=== PATIENT | female | born 1990 | race Two or more races ===

== ENCOUNTER 2016-06-13 13:42 | Emergency (ER) | payer MEDICAID ==
[2016-06-13 13:48] VITALS: BP 177/91; PULSE 87; RESP 16; TEMP 98.1; O2SAT 97
[2016-06-13] MEDS ORDERED: NS 1,000 ML IV ONE (13:56)
--- NOTE | 2016-06-13 13:57 | UCPHY ---
H & P Patient Type: New Chief Complaint Nursing Narrative: Lightheaded Time Seen by Provider: 06/13/16 13:52 HPI/ROS: CHIEF COMPLAINT: Lightheaded HISTORY OF PRESENT ILLNESS: Patient is a 25-year-old female who comes to the emergency department concerned that she may be having an allergic reaction. She states that soon after eating she began having a stuffy nose and feeling slightly lightheaded. No chest pain. No nausea vomiting. No rashes. No swelling. No shortness of breath or wheezing. This all began about 2 hours ago. She has not had a fever or been recently ill. About 1 month ago she had a slightly similar episode where after eating she became nauseous and then lightheaded. She presented to the emergency department and tests were normal and she was told that she maybe had a slight allergy to the food she has been eating. She does not have any known food allergies. She describes her symptoms as mild and even has a hard time pinpointing her chief complaints. REVIEW OF SYSTEMS: Constitutional: See HPI EENTM: denies: blurred vision, double vision, nose congestion Respiratory: denies: cough, shortness of breath Cardiac: denies: chest pain, irregular heart rate, palpitations Gastrointestinal/Abdominal: denies: abdominal pain, diarrhea, nausea, vomiting, blood streaked stools Genitourinary: denies: dysuria, frequency, hematuria, pain Musculoskeletal: denies: joint pain, muscle pain Skin: denies: lesions, rash, jaundice, bruising Neurological: denies: headache, numbness, paresthesia, tingling, dizziness, weakness Hematologic/Lymphatic: denies: blood clots, easy bleeding, easy bruising Immunologic/allergic: denies: HIV/AIDS, transplant EXAM: GENERAL: Well-appearing, obese and in no acute distress. HEAD: Atraumatic, normocephalic. EYES: Pupils equal round and reactive to light, extraocular movements intact, sclera anicteric, conjunctiva are normal. ENT: TMs normal, nares patent, oropharynx clear without exudates. Moist mucous membranes. NECK: Normal range of motion, supple without lymphadenopathy or JVD. LUNGS: Breath sounds clear to auscultation bilaterally and equal. No wheezes rales or rhonchi. HEART: Regular rate and rhythm without murmurs, rubs or gallops. ABDOMEN: Soft, nontender, normoactive bowel sounds. No guarding, no rebound. No masses appreciated. BACK: No CVA tenderness, no spinal tenderness, step-offs or deformities EXTREMITIES: Normal range of motion, no pitting or edema. No clubbing or cyanosis. NEUROLOGICAL: Cranial nerves II through XII grossly intact. Normal speech, normal gait. 5/5 strength, normal movement in all extremities, normal sensation PSYCH: Normal mood, normal affect. SKIN: Warm, dry, normal turgor, no visible rashes or lesions. Source: Patient Exam Limitations: No limitations - Personal History LMP (Females 10-55): 1-7 Days Ago Current Tetanus Diphtheria and Acellular Pertussis (TDAP): Yes Tetanus Vaccine Date: within 10 years - Medical/Surgical History Hx Asthma: No Hx Chronic Respiratory Disease: No Hx Diabetes: No Hx Cardiac Disease: No Hx Renal Disease: No Hx Cirrhosis: No Hx Alcoholism: No Hx HIV/AIDS: No Hx Splenectomy or Spleen Trauma: No Other PMH: None - Family History Significant Family History: No pertinent family hx - Social History Smoking Status: Never smoked Alcohol Use: None Drug Use: None Constitutional: Initial Vital Signs Temperature (C) 36.7 C 06/13/16 13:45 Heart Rate 87 06/13/16 13:45 Respiratory Rate 16 06/13/16 13:45 Blood Pressure 177/91 H 06/13/16 13:45 O2 Sat (%) 97 06/13/16 13:45 O2 Delivery Mode Room Air Allergies/Adverse Reactions: No Known Allergies Allergy (Verified 06/13/16 13:48) Home Medications: Medication Instructions Recorded Trinessa Tablet 06/13/16 Medical Decision Making - Diagnostics EKG Interpretation: An EKG obtained and was read and documented in trace view. Please see trace view for full reading and report. Sinus rhythm, no arrhythmia or ischemic changes. ED Course/Re-evaluation: Patient is well appearing. No significant abnormalities on exam. Normal vital signs. I will observe obtain EKG and lab work. 2:50 p.m. the patient feels completely better. We discussed her lab work and EKG which is reassuring. I told her that I do not know exactly why she was feeling lightheaded. Possibly she is starting to come down with a cold. No visible signs of allergy. Will allow her to go home and follow up with her primary doctor. We discussed indications for returning. Differential Diagnosis: Partial list of the Differential diagnosis considered include but were not limited to; allergic reaction, anxiety, viral syndrome and although unlikely based on the history and physical exam, I also considered arrhythmia, acute coronary disease, vertigo. I discussed these differential diagnoses and the plan with the patient as well as the usual and expected course. The patient understands that the diagnosis is provisional and that in medicine we are not always correct and that further workup is often warranted. Usual and customary warnings were given. All of the patient's questions were answered. The patient was instructed to return to the emergency department should the symptoms at all worsen or return, otherwise to followup with the physician as we discussed. - Data Points Laboratory Results: Laboratory Results 06/13/16 14:18 06/13/16 14:18 Medications Given: Discontinued Medications Sodium Chloride (Ns) 1,000 mls @ 0 mls/hr IV ONCE ONE PRN Reason: Wide Open Stop: 06/13/16 13:57 Last Admin: 06/13/16 15:05 Dose: Not Given Departure - Departure Disposition: Home, Routine, Self-Care Clinical Impression: Lightheaded Condition: Fair Instructions: Lightheadedness (ED) Referrals: Delmy Lloyd MD [Primary Care Provider] - As per Instructions - PQRS PQRS Measurement: Not applicable
--- NOTE | 2016-06-13 14:14 | CPEKG ---
Heart Rate: 78 RR Interval: 769 P-R Interval: 148 QRSD Interval: 80 QT Interval: 368 QTC Interval: 420 P [place]: 44 QRS [place]: 73 T Wave [place]: 41 EKG Severity - NORMAL ECG - EKG Impression: SINUS RHYTHM Electronically Signed By: Amadeo Novak 13-Jun-2016 14:31:40
[2016-06-13 14:21] LABS: % IMMATURE GRANULYOCYTES 0.1 % (0.0-1.1); ABSOLUTE IMMATURE GRANULOCYTES 0.01 10^3/uL (0.00-0.10); ADD DIFF? NO; ADD MORPH? NO; ADD SCAN? NO; ATYPICAL LYMPHOCYTE FLAG 0 (0-99); FRAGMENT RBC FLAG 0 (0-99); HEMATOCRIT 41.5 % (38.0-47.0); HEMOGLOBIN 13.4 g/dL (12.6-16.3); LEFT SHIFT FLG 0 (0-99); LIPEMIA HEMOLYSIS FLAG 80 (0-99); MEAN CELL HEMOGLOBIN 26.2 pg (27.9-34.1); MEAN CELL HEMOGLOBIN CONCENTR. 32.3 g/dL (32.4-36.7); MEAN CELL VOLUME 81.1 fL (81.5-99.8); MEAN PLATELET VOLUME 9.8 fL (8.7-11.7); PLATELET CLUMPS FLAG 0 (0-99); PLATELET COUNT 292 10^3/uL (150-400); RED BLOOD CELL COUNT 5.12 10^6/uL (4.18-5.33); RED CELL DISTRIBUTION WIDTH 13.2 % (11.5-15.2)
[2016-06-13 14:34] LABS: ANION GAP 13 mEq/L (8-16); CALCIUM 9.1 mg/dL (8.5-10.4); CARBON DIOXIDE 23 mEq/l (22-31); CHLORIDE 103 mEq/L (97-110); CREATININE 0.7 mg/dL (0.6-1.0); GLOMERULAR FILTRATION RATE > 60; GLUCOSE 92 mg/dL (70-100)
[2016-06-13 14:39] LABS: POTASSIUM 3.5 mEq/L (3.5-5.2); SODIUM 138 mEq/L (134-144)
== END 2016-06-13 15:06 | disposition home or self-care (01) ==
LOC: CED 13:42
DX: R42 Dizziness and giddiness (principal); J34.9 Unspecified disorder of nose and nasal sinuses
CPT/HCPCS: 80048-PO; 84703-PO; 85025-PO; G0463-PO

== ENCOUNTER 2017-02-19 17:14 | Emergency (ER) | payer OTHER, MEDICAID ==
[2017-02-19] MEDS ORDERED: IBUPROFEN 600 MG TAB PO ONE (17:34)
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
[2017-02-19 18:33] VITALS: BP 113/85; PULSE 75; RESP 18; TEMP 98.4; O2SAT 16
== END 2017-02-19 18:32 | disposition home or self-care (01) ==
LOC: CED 17:14
DX: S39.92XA Unspecified injury of lower back, initial encounter (principal); J45.909 Unspecified asthma, uncomplicated; V89.2XXA Person injured in unspecified motor-vehicle accident, traffic, initial encounter; Y92.481 Parking lot as the place of occurrence of the external cause
CPT/HCPCS: 72070-PO; 72100-PO

== ENCOUNTER 2017-07-26 04:56 | Emergency (ER) | payer SELFPAY ==
--- NOTE | 2017-07-26 05:25 | EDPHY ---
H & P Stated Complaint: persistent cough x 8 days with congestion. no fever. Time Seen by Provider: 07/26/17 05:05 HPI/ROS: Chief complaint: [ This is a medically healthy though obese 26-year-old female who presents with a worsening cough. ] HPI: [This cough started approximately 8 days ago. As of 2 days ago she started noticing a sense of fever and sweats with chilling having to take blankets on and off through the course of the night. What prompted her to come in this hour of the morning is that she is unable to sleep. The cough has been so harsh at that she is developing some bilateral diffuse rib pain associated with the coughing. The cough itself is dry. She has also had some moderate amounts of blowing of the nose without any discoloration. She is having chaffing of the area at cupids [place]. There is been a little bit of a pressure when she leans forward in the maxillary sinuses but not the frontal. She has had no headache or myalgias She has had no shaking chills or rigors. She has had no known particular exposure. She was the 1st 1 ill in the family. Her [place], 10-year-old son has a moderate upper respiratory with a lots of blowing of nose but no cough per se. The 2-year-old has just beginning to come down with a runny nose. While the chest is uncomfortable when she coughs in the lateral aspect of the ribs she has not appreciated any wheezing except for a slight musical tone when she coughs. Approximately 3 days ago there was 1 episode of post tussive emesis. ] Pt queried and denies: [prior hx of substance abuse,] [family history of substance abuse,] or [current or prior psychiatric history]. ROS: Constitutional - no fevers or chills. Eyes - no discharge, or injection ENT - no earache, change in hearing, difficulty swallowing, though there is a sore throat when she coughs so hard. Respiratory - No Shortness of breath, nor pleuritic chest pain. The cough is dry Musculoskeletal - no joint or muscle pain. Integument - no rashes. Neurological - no headache, numbness, tingling, or paresthesias. No focal motor weakness. Immunological - no swelling or lymphadenopathy 10 point ROS otherwise negative Source: Patient - Personal History LMP (Females 10-55): 15-21 Days Ago Current Tetanus Diphtheria and Acellular Pertussis (TDAP): Yes Tetanus Vaccine Date: 2014 - Medical/Surgical History Hx Asthma: Yes Hx Chronic Respiratory Disease: No Hx Diabetes: No Hx Cardiac Disease: No Hx Renal Disease: No Hx Cirrhosis: No Hx Alcoholism: No Hx HIV/AIDS: No Hx Splenectomy or Spleen Trauma: No Other PMH: ASTHMA,SCIATICA - Family History Significant Family History: No pertinent family hx - Social History Smoking Status: Never smoked Alcohol Use: None Drug Use: None - Physical Exam Exam: Gen: Well developed, well nourished. Nontoxic. [afebrile] [VSS] she does have a mild elevation of her blood pressure even when repeated the diastolic was 88. She has been asked to follow up regarding this. Upon my taking the temperature which was prompted by her clamminess and B to sweat on her brow was 37.0 C HEENT: Normocephalic. Ears: TMs are clear. Hearing normal. Eyes: PERRL. No conjunctival injection or pallor. no jaundice. Nose: No nasal discharge. Sinuses are nontender frontal though a little tender on the maxillary. Throat: Membranes are moist. Oropharynx is without erythema or exudate. Normal phonation. Neck: Trachea is in the ML. No laryngeal tenderness. [No adenopathy] Lungs: Good air entry into both lungs. Wheezes only her to a mild degree with forced exhalation per my request. There is a little bit of arrival heard at the right upper lobe anteriorly.. No air hunger. No respiratory distress. Skin: Good color, without pallor. There is mild diaphoresis. Skin is warmer than normal thus a new BP temperature was taken. [Intact without rashes] Constitutional: Initial Vital Signs Temperature (C) 36.7 C 07/26/17 05:02 Heart Rate 97 07/26/17 05:02 Respiratory Rate 20 07/26/17 05:02 Blood Pressure 164/93 H 07/26/17 05:02 O2 Sat (%) 96 07/26/17 05:02 O2 Delivery Mode Room Air Allergies/Adverse Reactions: No Known Allergies Allergy (Verified 02/19/17 17:25) Home Medications: Medication Instructions Recorded Azithromycin [Zithromax] 250 mg PO DAILY #4 tab 07/26/17 Benzonatate 200 mg PO TID PRN #28 capsule 07/26/17 Dm/PE/Acetaminophen/Doxylamine 07/26/17 [Cold & Relief Plus Liquid Gel] HYDROcodone/CHLORPHEN P-STIREX 5 ml PO BID PRN #115 tam.er.12h 07/26/17 [Tussionex Pennkinetic Susp] guaiFENesin [Mucinex] 07/26/17 Medical Decision Making ED Course/Re-evaluation: She is not wheezing significantly to the point that she needs an inhaler, inhalation treatment now, or nor steroids. We discussed the prospect of doing a chest x-ray to discern if she has pneumonia. However, she is particularly concerned regarding pricing and costs and would like to forego a chest x-ray and she does not get better in the next few days while on the antibiotic. Cough control will consist of 1 of the following but none in combination: Delsym, benzonatate, or Tussionex. She does not have any risk factors substance abuse and have cautioned her regarding the Tussionex. We discussed stopping the Mucinex in favor of these options. Differential Diagnosis: Diagnostic considerations include, but are not limited to, the following: URI, sinusitis, pharyngitis, otitis media, pneumonia, allergy, influenza, strep throat. Departure - Departure Disposition: Home, Routine, Self-Care Clinical Impression: Pneumonia Qualifiers: Pneumonia type: due to unspecified organism Laterality: right Lung location: upper lobe of lung Qualified Code(s): J18.1 - Lobar pneumonia, unspecified organism Hypertension Qualifiers: Hypertension type: essential hypertension Qualified Code(s): I10 - Essential ( primary) hypertension Condition: Good Instructions: Bacterial Pneumonia (ED) Additional Instructions: For the cough take: Yokasta OR Benzonatate OR Tussionex = No drinking, driving or working around machinery for 24 hours after a dose of this medication. Referrals: Patient,NotPresent [Primary Care Provider] - As per Instructions Donna Caballero MD [place] [place] - 5-7 days, if not improved (You need to have your Blood Pressure checked in a week or two. Recheck 2 days if not getting much better, 5 days if still ill.) Stand Alone Forms: Work Excuse Prescriptions: Azithromycin [Zithromax] 250 mg PO DAILY #4 tab Benzonatate 200 mg PO TID PRN #28 capsule PRN Reason: Cough HYDROcodone/CHLORPHEN P-STIREX [Tussionex Pennkinetic Susp] 5 ml PO BID PRN # 115 tam.er.12h PRN Reason: cough,moderate
[2017-07-26] MEDS ORDERED: BENZONATATE 100 MG CAP PO ONE (05:32)
[2017-07-26] MEDS ORDERED: AZITHROMYCIN 250 MG TAB PO ONE (05:32)
[2017-07-26 05:52] VITALS: BP 125/88
== END 2017-07-26 05:52 | disposition home or self-care (01) ==
LOC: CED 04:56
DX: J18.1 Lobar pneumonia, unspecified organism (principal); I10 Essential (primary) hypertension; J45.909 Unspecified asthma, uncomplicated